=== PATIENT | female | born 1985 | race Caucasian/White ===

== ENCOUNTER 2018-04-24 19:03 | Emergency (ER) | payer MEDICAID, OTHER ==
[2018-04-24 19:17] VITALS: BP 145/94
--- NOTE | 2018-04-24 19:37 | EDM.PDOC ---
ED HPI GENERAL MEDICAL PROBLEM - General Chief Complaint: ENT Problem Stated Complaint: LEFT SIDE TOOTH PULLED SATURDAY EXTREME PAIN TODAY Time Seen by Provider: 04/24/18 19:13 Source of Information: Reports: Patient History Limitations: Reports: No Limitations - History of Present Illness INITIAL COMMENTS - FREE TEXT/NARRATIVE: The patient presents with left upper jaw dental pain. She had a tooth extraction on Saturday. She did great and was taking ibuprofen. The pain started lat night and it has gotten worse. She was not put on antibiotics. The dentist did say it was a difficult extraction. She denies fever or chills. Onset: Gradual Duration: Day(s): (Last night) Location: Reports: Other (Left upper jaw pain) Quality: Reports: Sharp Severity: Severe Improves with: Reports: None Worsens with: Reports: None Associated Symptoms: Reports: No Other Symptoms Left Upper Tooth/Teeth Pain Score (Numeric/FACES): 10 - Related Data Allergies Allergy/AdvReac Type Severity Reaction Status Date / Time codeine Allergy Intermediate Hives Verified 07/23/15 22:14 hydrocodone bitartrate Allergy Intermediate Hives Verified 07/23/15 22:14 [From Vicodin] Home Meds: Home Meds Levonorgestrel [Mirena] 1 each IY ASDIRECTED 07/23/15 [History] Penicillin V Potassium 500 mg PO Q6HR #40 tab 04/24/18 [Rx] oxyCODONE HCl/Acetaminophen [Percocet 5-325 mg Tablet] 1 - 2 each PO Q6HR PRN # 20 tablet 04/24/18 [Rx] Past Medical History - Past Health History Medical/Surgical History: Denies Medical/Surgical History HEENT History: Reports: Other (See Below) Other HEENT History: glasses Cardiovascular History: Reports: Other (See Below) Other Cardiovascular History: hypertension in CORRECTIONS SPECIALIST History: Reports: Neurological History: Reports: Migraines Psychiatric History: Reports: Addiction, Other (See Below) Other Psychiatric History: nicotine is the addiction - Past Surgical History GI Surgical History: Reports: Appendectomy Social & Family History - Tobacco Use Smoking Status *Q: Current Every Day Smoker Years of Tobacco use: 10 Packs/Tins Daily: 0.5 - Caffeine Use Caffeine Use: Reports: Soda - Recreational Drug Use Recreational Drug Use: No ED ROS ENT - Review of Systems Review Of Systems: See Below Constitutional: Reports: No Symptoms HEENT: Reports: Dental Pain Respiratory: Reports: No Symptoms Cardiovascular: Reports: No Symptoms Endocrine: Reports: No Symptoms GI/Abdominal: Reports: No Symptoms : Reports: No Symptoms Musculoskeletal: Reports: No Symptoms Skin: Reports: No Symptoms ED EXAM, ENT - Physical Exam Exam: See Below Exam Limited By: No Limitations General Appearance: Alert, No Apparent Distress Ears: Normal External Exam Nose: Normal Inspection Mouth/Throat: Dental Pain, Other (There appears to be a clot in the socket still. Pain upon palpation and some edema to the left upper jaw.) Course - Vital Signs Last Recorded V/S: Last Vital Signs Temp 98.0 F 04/24/18 19:15 Pulse 71 04/24/18 19:15 Resp 20 04/24/18 19:15 BP 145/94 H 04/24/18 19:15 Pulse Ox 97 04/24/18 19:15 - Re-Assessments/Exams Free Text/Narrative Re-Assessment/Exam: 04/24/18 19:32 I will give her a shot of dilaudid here and I will give her some penicillins and percocet. Departure - Departure Time of Disposition: 19:35 Disposition: Home, Self-Care 01 Condition: Good Clinical Impression: Pain, dental - Discharge Information *PRESCRIPTION DRUG MONITORING PROGRAM REVIEWED*: No *COPY OF PRESCRIPTION DRUG MONITORING REPORT IN PATIENT EFRA: No Prescriptions: oxyCODONE HCl/Acetaminophen [Percocet 5-325 mg Tablet] 1 - 2 each PO Q6HR PRN # 20 tablet PRN Reason: Pain Penicillin V Potassium 500 mg PO Q6HR #40 tab Referrals: PCP,None [Primary Care Provider] - Additional Instructions: Take the medication as prescribed. Try ice or heat to the jaw. Follow up with your dentist. Please return if you are worse.
[2018-04-24] MEDS ORDERED: HYDROmorphone 1 MG/ML Syringe IM ONE (19:38)
== END 2018-04-24 19:48 | disposition home or self-care (01) ==
LOC: JD.ED 19:03
DX: K08.89 Other specified disorders of teeth and supporting structures (principal); F17.210 Nicotine dependence, cigarettes, uncomplicated; Z79.899 Other long term (current) drug therapy; Z88.5 Allergy status to narcotic agent; Z88.6 Allergy status to analgesic agent
CPT/HCPCS: 96372; 99282; J1170; 99283

== ENCOUNTER 2019-01-08 17:07 | Emergency (ER) | payer BC ==
[2019-01-08 17:18] VITALS: BP 172/110; PULSE 87
--- NOTE | 2019-01-08 18:16 | EDM.PDOC ---
<Rowan Og - Last Filed: 01/08/19 18:36> ED HPI GENERAL MEDICAL PROBLEM - General Chief Complaint: General Stated Complaint: SHARP PAIN (L BREAST),LOWER LEFT ABDOMINAL PAIN Time Seen by Provider: 01/08/19 17:20 Source of Information: Reports: Patient History Limitations: Reports: No Limitations - History of Present Illness INITIAL COMMENTS - FREE TEXT/NARRATIVE: 33 year old female who presents to the ED with complaints of nosebleeds, left breast pain, and left lower quadrant pain. She developed a frontal sinus headache three days ago and a history of frequent nosebleeds up to 3-4 times a week. Pt states that she has a history of migraine type headaches and this is not a migraine. Pt has been taking 4 ibuprofen tabs every six hours or so since developing the headache three days ago. Pt then checked her blood pressure at home and it has remained over 100 diastolic. Yesterday she was looking at her phone and she developed sudden severe, sharp burning pain that started in her left axilla and radiated to her left nipple. This pain lasted for about a minute and has been sore to touch since. At 1500 today, the patient developed left lower quadrant pain. She states that this feels similar to the pain that she's had in the past when she's had ovarian cysts. Denies fever, chills, or flulike symptoms. Pt does smoke a half pack of cigarettes per day for the past 15 years and drinks one cup of coffee and 4 pepsi's daily. Left Breast Pain Score (Numeric/FACES): 8 - Related Data Allergies Allergy/AdvReac Type Severity Reaction Status Date / Time codeine Allergy Intermediate Hives Verified 01/08/19 17:18 hydrocodone bitartrate Allergy Intermediate Hives Verified 01/08/19 17:18 [From Vicodin] Home Meds: Home Meds Escitalopram [Lexapro] 20 mg PO DAILY 01/08/19 [History] valACYclovir [Valtrex] 1,000 mg PO Q8H #20 tablet 01/08/19 [Rx] Past Medical History - Past Health History Medical/Surgical History: Denies Medical/Surgical History HEENT History: Reports: Impaired Vision Other HEENT History: glasses Cardiovascular History: Reports: Hypertension, Other (See Below) Other Cardiovascular History: hypertension in Respiratory History: Reports: None 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: Reports: Musculoskeletal History: Reports: None Neurological History: Reports: Migraines Psychiatric History: Reports: Depression Other Psychiatric History: nicotine is the addiction Endocrine/Metabolic History: Reports: Obesity/BMI 30+ Hematologic History: Reports: None Immunologic History: Reports: None Oncologic (Cancer) History: Reports: None Dermatologic History: Reports: None - Infectious Disease History Infectious Disease History: Reports: None - Past Surgical History HEENT Surgical History: Reports: Adenoidectomy, Oral Surgery, Tonsillectomy GI Surgical History: Reports: Appendectomy Female Surgical History: Reports: Tubal Ligation Social & Family History - Tobacco Use Smoking Status *Q: Current Every Day Smoker Years of Tobacco use: 15 Packs/Tins Daily: 0.5 - Caffeine Use Caffeine Use: Reports: Coffee, Soda - Recreational Drug Use Recreational Drug Use: No ED ROS GENERAL - Review of Systems Review Of Systems: See Below Constitutional: Reports: No Symptoms. Denies: Fever, Chills, Malaise, Weakness , Fatigue HEENT: Reports: Nosebleed, Sinus Problem. Denies: Eye Pain, Nose Pain, Vertigo , Vision Change Respiratory: Reports: No Symptoms. Denies: Shortness of Breath, Cough Cardiovascular: Reports: No Symptoms Endocrine: Reports: No Symptoms GI/Abdominal: Reports: Abdominal Pain (left lower quadrant-similar to pain she' s had in the past with ovarian cysts). Denies: Constipation, Diarrhea, Decreased Appetite, Nausea, Vomiting : Reports: No Symptoms Musculoskeletal: Reports: No Symptoms Skin: Reports: No Symptoms Neurological: Reports: Headache. Denies: Dizziness, Numbness, Syncope, Tingling Psychiatric: Reports: No Symptoms Hematologic/Lymphatic: Reports: No Symptoms Immunologic: Reports: Environmental Allergy, Seasonal Allergy ED EXAM, GENERAL - Physical Exam Exam: See Below Exam Limited By: No Limitations General Appearance: Alert, WD/WN, No Apparent Distress Eye Exam: Bilateral Eye: PERRL Ears: Normal External Exam, Hearing Grossly Normal Nose: Normal Inspection, Normal Mucosa, No Blood Throat/Mouth: Normal Inspection, Normal Lips, Normal Voice, No Airway Compromise Head: Atraumatic, Normocephalic, Sinus Tenderness Neck: Normal Inspection, Supple, Non-Tender, Full Range of Motion. No: Lymphadenopathy (L), Lymphadenopathy (R) Respiratory/Chest: No Respiratory Distress, Lungs Clear, Normal Breath Sounds, No Accessory Muscle Use, Chest Non-Tender Cardiovascular: Normal Peripheral Pulses, Regular Rate, Rhythm, No Edema, No Murmur GI/Abdominal: Normal Bowel Sounds, Soft, No Distention, Tender (left lower quadrant) (Female) Exam: Deferred Rectal (Female) Exam: Deferred Back Exam: Normal Inspection, Full Range of Motion Extremities: Normal Inspection, Normal Range of Motion, Non-Tender, No Pedal Edema, Normal Capillary Refill Neurological: Alert, Oriented, Normal Cognition, No Motor/Sensory Deficits Psychiatric: Normal Affect, Normal Mood Skin Exam: Warm, Dry, Intact, Normal Color, Erythema (left anterior axilla area running posteriorly to her back and up around the scapula area. Pt has pain with minimal palpation to this area. No zoster like rash noted at this time. Pt has never had the chicken pox but did have the vaccine for chicken pox.) Lymphatic: No Adenopathy Course - Vital Signs Last Recorded V/S: Last Vital Signs Temp 36.4 C 01/08/19 17:14 Pulse 87 01/08/19 17:14 Resp 16 01/08/19 17:14 BP 172/110 H 01/08/19 17:14 Pulse Ox 98 01/08/19 17:14 - Orders/Labs/Meds Labs: Laboratory Tests 01/08/19 01/08/19 01/08/19 Range/Units 18:22 18:35 18:35 WBC 9.83 (3.98-10.04) K/mm3 RBC 4.54 (3.98-5.22) M/mm3 Hgb 13.9 (11.2-15.7) gm/dl Hct 40.1 (34.1-44.9) % MCV 88.3 (79.4-94.8) fl MCH 30.6 (25.6-32.2) pg MCHC 34.7 (32.2-35.5) g/dl RDW Std Deviation 40.8 (36.4-46.3) fL Plt Count 280 (182-369) K/mm3 MPV 9.5 (9.4-12.3) fl Neutrophils % (Manual) 53 (40-60) % Band Neutrophils % 1 (0-10) % Lymphocytes % (Manual) 41 H (20-40) % Atypical Lymphs % 0 % Monocytes % (Manual) 5 (2-10) % Eosinophils % (Manual) 0 L (0.7-5.8) % Basophils % (Manual) 0 L (0.1-1.2) Platelet Estimate Adequate RBC Morph Comment Normal Sodium 139 (136-145) mEq/L Potassium 3.9 (3.5-5.1) mEq/L Chloride 102 (98-107) mEq/L Carbon Dioxide 28 (21-32) mEq/L Anion Gap 12.9 (5-15) BUN 8 (7-18) mg/dL Creatinine 0.7 (0.55-1.02) mg/dL Est Cr Clr Drug Dosing 109.01 mL/min Estimated GFR (MDRD) > 60 (>60) mL/min BUN/Creatinine Ratio 11.4 L (14-18) Glucose 82 (74-106) mg/dL Calcium 8.9 (8.5-10.1) mg/dL Total Bilirubin 0.3 (0.2-1.0) mg/dL AST 22 (15-37) U/L ALT 31 (14-59) U/L Alkaline Phosphatase 107 (46-116) U/L Total Protein 7.5 (6.4-8.2) g/dl Albumin 3.9 (3.4-5.0) g/dl Globulin 3.6 gm/dL Albumin/Globulin Ratio 1.1 (1-2) Urine Color Yellow (Yellow) Urine Appearance Clear (Clear) Urine pH 7.0 (5.0-8.0) Ur Specific [place] 1.015 (1.005-1.030) Urine Protein Negative (Negative) Urine Glucose (UA) Negative (Negative) Urine Ketones Negative (Negative) Urine Occult Blood Negative (Negative) Urine Nitrite Negative (Negative) Urine Bilirubin Negative (Negative) Urine Urobilinogen 0.2 (0.2-1.0) Ur Leukocyte Esterase Negative (Negative) Urine RBC Not seen (0-5) /hpf Urine WBC Not seen (0-5) /hpf Ur Squamous Epith Cells 0-5 (0-5) /hpf Urine Bacteria Not seen (FEW) /hpf Urine Mucus Not seen (FEW) /hpf Meds: Medications Discontinued Medications Generic Name Dose Route Start Last Admin Trade Name Freq PRN Reason Stop Dose Admin Valacyclovir HCl 1,000 mg 01/08/19 18:32 01/08/19 19:06 Valtrex PO 01/08/19 18:33 1,000 mg ONETIME ONE Administration - Re-Assessments/Exams Free Text/Narrative Re-Assessment/Exam: 01/08/19 18:27 With the patient having complaints of pain to the left breast I completed a bilateral manual breast exam and did not note any masses. However, the patient has erythema noted to left lateral rib area to the left axilla. Pain with minimal is noted from the area of erythema and extending to left scapular area. I ordered a CBC, CMP, and a UA on this patient. I also educated the patient regarding lifestyle changes and the need to stop smoking and decrease caffeine intake. Free Text/Narrative Re-Assessment/Exam: 01/08/19 18:[address] Sierra, we are going to start this patient on valcyclovir due to the dermatome pain. Departure - Departure Disposition: Home, Self-Care 01 Clinical Impression: Shingles rash, Sinus congestion - Discharge Information Prescriptions: valACYclovir [Valtrex] 1,000 mg PO Q8H #20 tablet Referrals: Salome Zhong PA-C [Primary Care Provider] - Forms: ED Department Discharge Additional Instructions: Return to emergency room if any questions problems or worsening symptoms. Take the Valtrex as directed. Use the sinus irrigation as we discussed, use the [employer] med sinus pigment pusher Follow-up in the clinic on Saturday as scheduled. <Fantasma Sierra - Last Filed: 01/08/19 19:28> ED EXAM, GENERAL - Physical Exam Skin Exam: Other (Closer inspection the patient has a dermatomal-like distribution of some erythema started to come out the skin she's got a single lesion that looks like it red area raised just anterior to the axilla she's had a single lesion that could be consistent with early shingles lesion looks like it could be early shingles like lesion this extends into her left breast) Course - Re-Assessments/Exams Free Text/Narrative Re-Assessment/Exam: 01/08/19 19:21 Patient will be started on Valtrex thousand milligrams 3 times a day and she will be started on saline irrigation to help with her sinus congestion and sinus -like headaches.. This will not affect her blood pressure in an adverse way as many of the medications will do. Departure - Departure Time of Disposition: 19:22
[2019-01-08] MEDS ORDERED: valACYclovir 500 MG Tab PO ONE (18:32)
== END 2019-01-08 19:57 | disposition home or self-care (01) ==
LOC: JD.ED 17:07
DX: B02.9 Zoster without complications (principal); R09.81 Nasal congestion; I10 Essential (primary) hypertension; F32.9 Major depressive disorder, single episode, unspecified; E66.9 Obesity, unspecified; Z68.31 Body mass index [BMI] 31.0-31.9, adult; Z88.6 Allergy status to analgesic agent; Z88.8 Allergy status to other drugs, medicaments and biological substances; F17.210 Nicotine dependence, cigarettes, uncomplicated; Z79.899 Other long term (current) drug therapy
CPT/HCPCS: 36415; 80053; 81001; 85007; 85027; 99283; A9270

== ENCOUNTER 2019-05-13 18:35 | Emergency (ER) | payer BC, OTHER ==
[2019-05-13 19:02] VITALS: BP 136/96; PULSE 84
[2019-05-13] MEDS ORDERED: HYDROmorphone 1 MG/ML Syringe IVPUSH ONE (19:10)
[2019-05-13] MEDS ORDERED: Sodium Chloride 0.9% 10 ML Syringe FLUSH PRN (19:10)
[2019-05-13] MEDS ORDERED: Sodium Chloride 0.9% 1,000 ML IV STA (19:10)
--- NOTE | 2019-05-13 19:15 | EDM.PDOC ---
ED HPI GENERAL MEDICAL PROBLEM - General Chief Complaint: Abdominal Pain Stated Complaint: influ b pos back and side pains Time Seen by Provider: 05/13/19 19:01 Source of Information: Reports: Patient History Limitations: Reports: No Limitations - History of Present Illness INITIAL COMMENTS - FREE TEXT/NARRATIVE: The patient presents with abdominal pain. This started today. She was diagnosed with pneumonia and influenza B on Saturday. She was put on an antibiotic. She was doing good and had no fever yesterday. She went to work today and now she is doing worse. She has a fever, cough, and she has upper abdominal pain that radiates to her back. She has no nausea or vomiting. She has no diarrhea or dysuria. She still has her gallbladder but not her appendix. She has generalized weakness and fatigue. Onset: Gradual Duration: Day(s): Location: Reports: Abdomen Quality: Reports: Sharp Severity: Moderate Improves with: Reports: None Worsens with: Reports: None Associated Symptoms: Reports: Cough, Fever/Chills. Denies: Chest Pain, Headaches, Nausea/Vomiting, Shortness of Breath Upper Abdomen Pain Score (Numeric/FACES): 7 - Related Data Allergies Allergy/AdvReac Type Severity Reaction Status Date / Time codeine Allergy Intermediate Hives Verified 05/13/19 18:57 hydrocodone bitartrate Allergy Intermediate Hives Verified 05/13/19 18:57 [From Vicodin] Home Meds: Home Meds Escitalopram [Lexapro] 20 mg PO DAILY 01/08/19 [History] Ondansetron [Zofran ODT] 4 mg PO Q6H PRN #20 tab.dis 05/13/19 [Rx] Past Medical History - Past Health History Medical/Surgical History: Denies Medical/Surgical History HEENT History: Reports: Impaired Vision Other HEENT History: glasses Cardiovascular History: Reports: Hypertension, Other (See Below) Other Cardiovascular History: hypertension in Respiratory History: Reports: None 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 History: Reports: None Neurological History: Reports: Migraines Psychiatric History: Reports: Depression Other Psychiatric History: nicotine is the addiction Endocrine/Metabolic History: Reports: Obesity/BMI 30+ Hematologic History: Reports: None Immunologic History: Reports: None Oncologic (Cancer) History: Reports: None Dermatologic History: Reports: None - Infectious Disease History Infectious Disease History: Reports: Influenza - Past Surgical History HEENT Surgical History: Reports: Adenoidectomy, Oral Surgery, Tonsillectomy GI Surgical History: Reports: Appendectomy Female Surgical History: Reports: Tubal Ligation Social & Family History - Tobacco Use Smoking Status *Q: Current Every Day Smoker Years of Tobacco use: 16 Packs/Tins Daily: 0.5 - Caffeine Use Caffeine Use: Reports: Coffee - Recreational Drug Use Recreational Drug Use: No ED ROS GENERAL - Review of Systems Review Of Systems: See Below Constitutional: Reports: Fever, Chills, Weakness, Fatigue HEENT: Reports: No Symptoms Respiratory: Reports: Cough. Denies: Shortness of Breath Cardiovascular: Reports: No Symptoms Endocrine: Reports: Fatigue GI/Abdominal: Reports: Abdominal Pain. Denies: Diarrhea, Nausea, Vomiting : Reports: No Symptoms Musculoskeletal: Reports: No Symptoms Skin: Reports: No Symptoms ED EXAM, GI/ABD - Physical Exam Exam: See Below Exam Limited By: No Limitations General Appearance: Alert, No Apparent Distress Ears: Normal External Exam Nose: Normal Inspection Head: Atraumatic, Normocephalic Neck: Normal Inspection Respiratory/Chest: No Respiratory Distress, Lungs Clear, Normal Breath Sounds Cardiovascular: Regular Rate, Rhythm, No Edema, No Murmur GI/Abdominal Exam: Soft, No Organomegaly, No Mass, Tender (Mild tenderness to the upper abdomen.) Back Exam: Normal Inspection Extremities: Normal Inspection Course - Vital Signs Last Recorded V/S: Last Vital Signs Temp 97.4 F 05/13/19 18:51 Pulse 84 05/13/19 18:51 Resp 20 05/13/19 18:51 BP 136/96 H 05/13/19 18:51 Pulse Ox 99 05/13/19 18:51 - Orders/Labs/Meds Orders: Active Orders 24 hr Category Date Time Status Peripheral IV Care [RC] . DIRECTED Care 05/13/19 19:10 Active Sodium Chloride 0.9% [Saline Flush] Med 05/13/19 19:10 Active 10 ml FLUSH ASDIRECTED PRN Peripheral IV Insertion Adult [OM.PC] Stat Oth 05/13/19 19:10 Ordered Medication Orders Sodium Chloride (Saline Flush) 10 ml FLUSH ASDIRECTED PRN PRN Reason: Keep Vein Open Last Admin: 05/13/19 19:27 Dose: 10 ml Labs: Laboratory Tests 05/13/19 05/13/19 05/13/19 Range/Units 19:24 19:24 19:24 WBC 5.88 (3.98-10.04) K/mm3 RBC 4.86 (3.98-5.22) M/mm3 Hgb 14.9 (11.2-15.7) gm/dl Hct 43.2 (34.1-44.9) % MCV 88.9 (79.4-94.8) fl MCH 30.7 (25.6-32.2) pg MCHC 34.5 (32.2-35.5) g/dl RDW Std Deviation 42.3 (36.4-46.3) fL Plt Count 208 (182-369) K/mm3 MPV 9.8 (9.4-12.3) fl Neut % (Auto) 30.2 L (34.0-71.1) % Lymph % (Auto) 60.7 H (19.3-51.7) % [place] % (Auto) 7.0 (4.7-12.5) % Eos % (Auto) 1.2 (0.7-5.8) Baso % (Auto) 0.7 (0.1-1.2) % Neut # (Auto) 1.78 (1.56-6.13) K/mm3 Lymph # (Auto) 3.57 (1.18-3.74) K/mm3 [place] # (Auto) 0.41 H (0.24-0.36) K/mm3 Eos # (Auto) 0.07 (0.04-0.36) K/mm3 Baso # (Auto) 0.04 (0.01-0.08) K/mm3 Manual Slide Review Normal smear Sodium 141 (136-145) mEq/L Potassium 2.8 L (3.5-5.1) mEq/L Chloride 102 (98-107) mEq/L Carbon Dioxide 31 (21-32) mEq/L Anion Gap 10.8 (5-15) BUN 9 (7-18) mg/dL Creatinine 0.7 (0.55-1.02) mg/dL Est Cr Clr Drug Dosing 103.82 mL/min Estimated GFR (MDRD) > 60 (>60) mL/min BUN/Creatinine Ratio 12.9 L (14-18) Glucose 90 (74-106) mg/dL Calcium 8.9 (8.5-10.1) mg/dL Total Bilirubin 0.7 (0.2-1.0) mg/dL AST 43 H (15-37) U/L ALT 74 H (14-59) U/L Alkaline Phosphatase 83 (46-116) U/L Total Protein 8.1 (6.4-8.2) g/dl Albumin 3.9 (3.4-5.0) g/dl Globulin 4.2 gm/dL Albumin/Globulin Ratio 0.9 L (1-2) Lipase 91 (73-393) U/L HCG, Qual Negative (NEGATIVE) Urine Color (Yellow) Urine Appearance (Clear) Urine pH (5.0-8.0) Ur Specific [place] (1.005-1.030) Urine Protein (Negative) Urine Glucose (UA) (Negative) Urine Ketones (Negative) Urine Occult Blood (Negative) Urine Nitrite (Negative) Urine Bilirubin (Negative) Urine Urobilinogen (0.2-1.0) Ur Leukocyte Esterase (Negative) Urine RBC (0-5) /hpf Urine WBC (0-5) /hpf Ur Squamous Epith Cells (0-5) /hpf Urine Bacteria (FEW) /hpf Urine Mucus (FEW) /hpf 05/13/19 Range/Units 19:30 WBC (3.98-10.04) K/mm3 RBC (3.98-5.22) M/mm3 Hgb (11.2-15.7) gm/dl Hct (34.1-44.9) % MCV (79.4-94.8) fl MCH (25.6-32.2) pg MCHC (32.2-35.5) g/dl RDW Std Deviation (36.4-46.3) fL Plt Count (182-369) K/mm3 MPV (9.4-12.3) fl Neut % (Auto) (34.0-71.1) % Lymph % (Auto) (19.3-51.7) % [place] % (Auto) (4.7-12.5) % Eos % (Auto) (0.7-5.8) Baso % (Auto) (0.1-1.2) % Neut # (Auto) (1.56-6.13) K/mm3 Lymph # (Auto) (1.18-3.74) K/mm3 [place] # (Auto) (0.24-0.36) K/mm3 Eos # (Auto) (0.04-0.36) K/mm3 Baso # (Auto) (0.01-0.08) K/mm3 Manual Slide Review Sodium (136-145) mEq/L Potassium (3.5-5.1) mEq/L Chloride (98-107) mEq/L Carbon Dioxide (21-32) mEq/L Anion Gap (5-15) BUN (7-18) mg/dL Creatinine (0.55-1.02) mg/dL Est Cr Clr Drug Dosing mL/min Estimated GFR (MDRD) (>60) mL/min BUN/Creatinine Ratio (14-18) Glucose (74-106) mg/dL Calcium (8.5-10.1) mg/dL Total Bilirubin (0.2-1.0) mg/dL AST (15-37) U/L ALT (14-59) U/L Alkaline Phosphatase (46-116) U/L Total Protein (6.4-8.2) g/dl Albumin (3.4-5.0) g/dl Globulin gm/dL Albumin/Globulin Ratio (1-2) Lipase (73-393) U/L HCG, Qual (NEGATIVE) Urine Color Yellow (Yellow) Urine Appearance Slt cloudy H (Clear) Urine pH 6.5 (5.0-8.0) Ur Specific [place] 1.020 (1.005-1.030) Urine Protein 1+ H (Negative) Urine Glucose (UA) Negative (Negative) Urine Ketones Negative (Negative) Urine Occult Blood Trace-lysed H (Negative) Urine Nitrite Negative (Negative) Urine Bilirubin 1+ H (Negative) Urine Urobilinogen 2.0 H (0.2-1.0) Ur Leukocyte Esterase Negative (Negative) Urine RBC 0-5 (0-5) /hpf Urine WBC 0-5 (0-5) /hpf Ur Squamous Epith Cells 5-10 H (0-5) /hpf Urine Bacteria Rare (FEW) /hpf Urine Mucus Not seen (FEW) /hpf Meds: Medications Generic Name Dose Route Start Last Admin Trade Name Freq PRN Reason Stop Dose Admin Sodium Chloride 10 ml 05/13/19 19:10 05/13/19 19:27 Saline Flush FLUSH 10 ml ASDIRECTED PRN Administration Keep Vein Open Discontinued Medications Generic Name Dose Route Start Last Admin Trade Name Debbie PRN Reason Stop Dose Admin Hydromorphone HCl 1 mg 05/13/19 19:10 05/13/19 19:27 Dilaudid IVPUSH 05/13/19 19:11 1 mg ONETIME ONE Administration Sodium Chloride 1,000 mls @ 1,000 mls/hr 05/13/19 19:10 05/13/19 19:27 Normal Saline IV 05/13/19 20:09 1,000 mls/hr .BOLUS STA Administration - Re-Assessments/Exams Free Text/Narrative Re-Assessment/Exam: 05/13/19 19:15 I ordered an IV NS 1L bolus, dilaudid 1mg IV, labs and UA. 05/13/19 20:27 Her CBC looks good. Her K was low at 2.8. She is on potassium for that. Her AST is elevated slightly at 43. Her ALT is elevated slightly at 74. I will discharge her home with some zofran. Departure - Departure Time of Disposition: 20:30 Disposition: Home, Self-Care 01 Condition: Good Clinical Impression: Influenza B, Hypokalemia Abdominal pain Qualifiers: Abdominal location: upper abdomen, unspecified Qualified Code(s): R10.10 - Upper abdominal pain, unspecified - Discharge Information *PRESCRIPTION DRUG MONITORING PROGRAM REVIEWED*: Not Applicable *COPY OF PRESCRIPTION DRUG MONITORING REPORT IN PATIENT EFRA: Not Applicable Prescriptions: Ondansetron [Zofran ODT] 4 mg PO Q6H PRN #20 tab.dis PRN Reason: Nausea\vomiting Referrals: Salome Zhong PA-C [Primary Care Provider] - Forms: ED Department Discharge, ED Return to Work/School Form Additional Instructions: Drink plenty of fluids. Take potassium as directed. Take the zofran every 6 hours as needed for any nausea or vomiting. Take motrin or tylenol for pain or fever. Please return if you are worse. Sepsis Event Note - Evaluation Sepsis Screening Result: No Definite Risk - Focused Exam Vital Signs: Vital Signs Temp Pulse Resp BP Pulse Ox 05/13/19 18:51 97.4 F 84 20 136/96 H 99 Date Exam was Performed: 05/13/19 Time Exam was Performed: 20:27 - My Orders Last 24 Hours: My Active Orders 05/13/19 19:10 Peripheral IV Care [RC] . DIRECTED Sodium Chloride 0.9% [Saline Flush] 10 ml FLUSH ASDIRECTED PRN Peripheral IV Insertion Adult [OM.PC] Stat - Assessment/Plan Last 24 Hours: My Active Orders 05/13/19 19:10 Peripheral IV Care [RC] . DIRECTED Sodium Chloride 0.9% [Saline Flush] 10 ml FLUSH ASDIRECTED PRN Peripheral IV Insertion Adult [OM.PC] Stat
== END 2019-05-13 20:35 | disposition home or self-care (01) ==
LOC: JD.ED 18:35
DX: R10.10 Upper abdominal pain, unspecified (principal); J10.1 Influenza due to other identified influenza virus with other respiratory manifestations; E87.6 Hypokalemia; E66.9 Obesity, unspecified; Z68.33 Body mass index [BMI] 33.0-33.9, adult; F32.9 Major depressive disorder, single episode, unspecified; I10 Essential (primary) hypertension; F17.210 Nicotine dependence, cigarettes, uncomplicated; Z79.899 Other long term (current) drug therapy; Z88.5 Allergy status to narcotic agent
CPT/HCPCS: 36415; 80053; 81001; 83690; 84703; 85025; 96361; 96374; 99284; J1170; J7030

== ENCOUNTER 2019-11-05 19:40 | Emergency (ER) | payer MEDICAID, OTHER ==
--- NOTE | 2019-11-05 20:33 | EDM.PDOC ---
ED HPI GENERAL MEDICAL PROBLEM - General Chief Complaint: Cardiovascular Problem Stated Complaint: HIGH BLOOD PRESSURE Time Seen by Provider: 11/05/19 19:45 Source of Information: Reports: Patient History Limitations: Reports: No Limitations - History of Present Illness INITIAL COMMENTS - FREE TEXT/NARRATIVE: The patient presents with hypertension and chest pain. She said this all started on Saturday. She did not feel well. She did have some pain that went from her left upper back to her chest. She has no fever, chills, cough, congestion, runny nose, shortness of breath, abdominal pain, nausea or vomiting. Her BP was elevated in the 150s and 140s. She called her doctor and she is scheduled to see her on the . She has no history of hypertension but lately she has been running high. She has no headache, vision changes, numbness or weakness. Onset: Gradual Duration: Day(s): Location: Reports: Chest Quality: Reports: Sharp Severity: Moderate Improves with: Reports: None Worsens with: Reports: None Associated Symptoms: Reports: Chest Pain. Denies: Cough, Fever/Chills, Headaches, Nausea/Vomiting, Shortness of Breath Left Chest Pain Score (Numeric/FACES): 4 - Related Data Allergies Allergy/AdvReac Type Severity Reaction Status Date / Time codeine Allergy Severe Hives Verified 11/05/19 19:49 hydrocodone bitartrate Allergy Severe Hives Verified 11/05/19 19:49 [From Vicodin] Home Meds: Home Meds Escitalopram [Lexapro] 20 mg PO DAILY 01/08/19 [History] Metoprolol Succinate 25 mg PO DAILY #30 tab.er.24h 11/05/19 [Rx] hydrOXYzine HCL [Hydroxyzine HCl] 25 mg PO Q6HR PRN 11/05/19 [History] Past Medical History - Past Health History Medical/Surgical History: Denies Medical/Surgical History HEENT History: Reports: Impaired Vision Other HEENT History: glasses Cardiovascular History: Reports: Hypertension, Other (See Below) Other Cardiovascular History: hypertension in Respiratory History: Reports: None 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: Reports: 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 Neurological History: Reports: Migraines Psychiatric History: Reports: Depression Other Psychiatric History: nicotine is the addiction Endocrine/Metabolic History: Reports: Obesity/BMI 30+ Hematologic History: Reports: None Immunologic History: Reports: None Oncologic (Cancer) History: Reports: None Dermatologic History: Reports: None - Infectious Disease History Infectious Disease History: Reports: None - Past Surgical History HEENT Surgical History: Reports: Adenoidectomy, Oral Surgery, Tonsillectomy GI Surgical History: Reports: Appendectomy Female Surgical History: Reports: Tubal Ligation Social & Family History - Tobacco Use Smoking Status *Q: Current Every Day Smoker Years of Tobacco use: 15 Packs/Tins Daily: 0.5 - Caffeine Use Caffeine Use: Reports: Coffee, Soda - Recreational Drug Use Recreational Drug Use: No ED ROS GENERAL - Review of Systems Review Of Systems: See Below Constitutional: Reports: No Symptoms HEENT: Reports: No Symptoms Respiratory: Reports: No Symptoms Cardiovascular: Reports: Chest Pain Endocrine: Reports: No Symptoms GI/Abdominal: Reports: No Symptoms : Reports: No Symptoms Musculoskeletal: Reports: No Symptoms Skin: Reports: No Symptoms ED EXAM, GENERAL - Physical Exam Exam: See Below Exam Limited By: No Limitations General Appearance: Alert, No Apparent Distress Ears: Normal External Exam Nose: Normal Inspection Head: Atraumatic, Normocephalic Neck: Normal Inspection Respiratory/Chest: No Respiratory Distress, Lungs Clear, Normal Breath Sounds Cardiovascular: Regular Rate, Rhythm, No Edema, No Murmur GI/Abdominal: Soft, Non-Tender, No Organomegaly, No Mass Back Exam: Normal Inspection Extremities: Normal Inspection Course - Vital Signs Last Recorded V/S: Last Vital Signs Temp 97.9 F 11/05/19 19:46 Pulse 89 11/05/19 19:46 Resp 16 11/05/19 19:46 BP 149/108 H 11/05/19 19:46 Pulse Ox 98 11/05/19 19:46 - Orders/Labs/Meds Orders: Active Orders 24 hr Category Date Time Status Cardiac Monitoring [RC] . DIRECTED Care 11/05/19 20:03 Active EKG Documentation Completion [RC] STAT Care 11/05/19 20:03 Active Metoprolol Succinate [Toprol XL] Med 11/06/19 09:00 Ordered 25 mg PO DAILY Labs: Laboratory Tests 11/05/19 11/05/19 Range/Units 20:18 20:18 WBC 10.70 H (3.98-10.04) K/mm3 RBC 4.19 (3.98-5.22) M/mm3 Hgb 13.2 D (11.2-15.7) gm/dl Hct 37.6 (34.1-44.9) % MCV 89.7 (79.4-94.8) fl MCH 31.5 (25.6-32.2) pg MCHC 35.1 (32.2-35.5) g/dl RDW Std Deviation 41.9 (36.4-46.3) fL Plt Count 282 (182-369) K/mm3 MPV 10.2 (9.4-12.3) fl Neut % (Auto) 59.5 (34.0-71.1) % Lymph % (Auto) 32.9 (19.3-51.7) % [place] % (Auto) 6.3 (4.7-12.5) % Eos % (Auto) 0.8 (0.7-5.8) Baso % (Auto) 0.4 (0.1-1.2) % Neut # (Auto) 6.37 H (1.56-6.13) K/mm3 Lymph # (Auto) 3.52 (1.18-3.74) K/mm3 [place] # (Auto) 0.67 H (0.24-0.36) K/mm3 Eos # (Auto) 0.09 (0.04-0.36) K/mm3 Baso # (Auto) 0.04 (0.01-0.08) K/mm3 Manual Slide Review Normal smear Sodium 139 (136-145) mEq/L Potassium 3.2 L (3.5-5.1) mEq/L Chloride 102 (98-107) mEq/L Carbon Dioxide 26 (21-32) mEq/L Anion Gap 14.2 (5-15) BUN 11 (7-18) mg/dL Creatinine 1.1 H (0.55-1.02) mg/dL Est Cr Clr Drug Dosing 66.07 mL/min Estimated GFR (MDRD) 58 (>60) mL/min BUN/Creatinine Ratio 10.0 L (14-18) Glucose 115 H (74-106) mg/dL Calcium 8.2 L (8.5-10.1) mg/dL Total Bilirubin 0.3 (0.2-1.0) mg/dL AST 17 (15-37) U/L ALT 29 (14-59) U/L Alkaline Phosphatase 128 H (46-116) U/L Troponin I < 0.017 (0.00-0.056) ng/mL Total Protein 6.8 (6.4-8.2) g/dl Albumin 3.4 (3.4-5.0) g/dl Globulin 3.4 gm/dL Albumin/Globulin Ratio 1.0 (1-2) TSH 3rd Generation 1.936 (0.358-3.74) uIU/mL Meds: Medications Discontinued Medications Generic Name Dose Route Start Last Admin Trade Name Freq PRN Reason Stop Dose Admin Hydrochlorothiazide 12.5 mg 11/05/19 21:41 Hydrochlorothiazide PO 11/05/19 21:42 ONETIME ONE - Re-Assessments/Exams Free Text/Narrative Re-Assessment/Exam: 11/05/19 20:40 I ordered an EKG and labs. 11/05/19 21:44 Her EKG shows a NSR with no acute changes. Her WBC was elevated at 10.7. Her K is low at 3.2. Her creatinine is a little elevated at 1.1. Her alk phos is elevated at 128. Her troponin is negative. Her TSH is normal. She would like to get started on something for her BP. It is not way high but it is running consistently high. I will get her on some metoprolol 25mg. Departure - Departure Time of Disposition: 21:50 Disposition: Home, Self-Care 01 Condition: Good Clinical Impression: Hypertension Qualifiers: Hypertension type: essential hypertension Qualified Code(s): I10 - Essential (primary) hypertension Prescriptions: Metoprolol Succinate 25 mg PO DAILY #30 tab.er.24h Referrals: Salome Zhong PA-C [Primary Care Provider] - 1 Week Forms: ED Department Discharge Additional Instructions: Take metoprolol daily. Follow up with Elena Zhong. Please return if you are worse. You potassium was a little low. I would recommend taking a multivitamin containing potassium. Sepsis Event Note (ED) - Evaluation Sepsis Screening Result: No Definite Risk - Focused Exam Vital Signs: Vital Signs Temp Pulse Resp BP Pulse Ox 11/05/19 19:46 97.9 F 89 16 149/108 H 98 - My Orders Last 24 Hours: My Active Orders 11/05/19 20:03 Cardiac Monitoring [RC] . DIRECTED EKG Documentation Completion [RC] STAT 11/06/19 09:00 Metoprolol Succinate [Toprol XL] 25 mg PO DAILY - Assessment/Plan Last 24 Hours: My Active Orders 11/05/19 20:03 Cardiac Monitoring [RC] . DIRECTED EKG Documentation Completion [RC] STAT 11/06/19 09:00 Metoprolol Succinate [Toprol XL] 25 mg PO DAILY
[2019-11-05] MEDS ORDERED: Hydrochlorothiazide 12.5 MG Cap PO ONE (21:41)
[2019-11-05] MEDS ORDERED: Metoprolol Succinate 25 MG Tab.ER PO SCH (21:53)
[2019-11-05 22:01] VITALS: BP 154/95; PULSE 80
[2019-11-06] MEDS ORDERED: Metoprolol Succinate 25 MG Tab.ER PO SCH (09:00)
== END 2019-11-05 22:08 | disposition home or self-care (01) ==
LOC: JD.ED 19:40
DX: I10 Essential (primary) hypertension (principal); F32.9 Major depressive disorder, single episode, unspecified; E66.9 Obesity, unspecified; F17.210 Nicotine dependence, cigarettes, uncomplicated; Z88.5 Allergy status to narcotic agent; Z68.36 Body mass index [BMI] 36.0-36.9, adult; Z79.899 Other long term (current) drug therapy; Z90.49 Acquired absence of other specified parts of digestive tract; Z90.89 Acquired absence of other organs; Z98.51 Tubal ligation status
CPT/HCPCS: 36415; 80053; 84443; 84484; 85025; 93005; 99285; A9270; 93010; 99283

== ENCOUNTER 2022-04-07 18:24 | Emergency (ER) | payer BC ==
[2022-04-07 18:39] VITALS: BP 154/105; PULSE 86
[2022-04-07] MEDS ORDERED: Ketorolac 30 MG/ML SDV IM ONE (18:56)
[2022-04-07] MEDS ORDERED: diphenhydrAMINE 50 MG/ML SDV IM ONE (18:56)
[2022-04-07] MEDS ORDERED: Metoclopramide 10 MG/2 ML SDV IM ONE (18:56)
== END 2022-04-07 20:16 | disposition home or self-care (01) ==
LOC: JD.ED 18:24
DX: G43.809 Other migraine, not intractable, without status migrainosus (principal); I10 Essential (primary) hypertension; F17.210 Nicotine dependence, cigarettes, uncomplicated; E66.9 Obesity, unspecified; Z68.34 Body mass index [BMI] 34.0-34.9, adult; Z88.5 Allergy status to narcotic agent
CPT/HCPCS: 96372; 99283; J1200; J1885; J2765

== ENCOUNTER 2022-04-13 12:34 | Day surgery (SDC) | payer BC ==
[2022-04-13] MEDS ORDERED: Bupivacaine 0.5%/EPINEPHrine 1:200,000 50 ML MDV ONE (12:45)
[2022-04-13] MEDS ORDERED: Lidocaine 1% 30 ML SDV ONE (12:45)
[2022-04-13] MEDS ORDERED: Rocuronium 50 MG/5 ML Vial ONE (13:02)
[2022-04-13] MEDS ORDERED: Ondansetron 4 MG/2 ML SDV ONE (13:02)
[2022-04-13] MEDS ORDERED: Lidocaine 1% 2 ML ONE (13:02)
[2022-04-13] MEDS ORDERED: fentaNYL 100 MCG/2 ML SDV ONE (13:03)
[2022-04-13] MEDS ORDERED: Propofol 200 MG/20 ML SDV ONE (13:03)
[2022-04-13] MEDS ORDERED: Sodium Chloride 0.9% 10 ML Syringe FLUSH PRN (13:05)
[2022-04-13] MEDS ORDERED: Lidocaine 1%/Sod Bicarbonate in NS 8.4% 1 ML Syringe IDERM PRN (13:05)
[2022-04-13] MEDS ORDERED: ceFAZolin 2 GM Vial ONE (13:06)
[2022-04-13] MEDS ORDERED: Lactated Ringers 1,000 ML IV SCH (13:15)
[2022-04-13] MEDS ORDERED: Midazolam 1 MG/ML 2 ML SDV ONE (13:17)
[2022-04-13] MEDS ORDERED: Ketorolac 30 MG/ML SDV ONE (13:47)
[2022-04-13] MEDS ORDERED: Sugammadex Sodium 200 MG/2 ML VIAL ONE (13:48)
[2022-04-13] MEDS ORDERED: HYDROmorphone 0.5 MG/0.5 ML Syringe IVPUSH PRN (14:25)
[2022-04-13] MEDS ORDERED: fentaNYL 100 MCG/2 ML SDV IVPUSH PRN (14:25)
[2022-04-13] MEDS ORDERED: Ondansetron 4 MG/2 ML SDV IVPUSH PRN (14:25)
[2022-04-13 15:44] VITALS: BP 117/83; PULSE 77
[2022-04-13] MEDS ORDERED: Sodium Chloride 0.9% 10 ML Syringe FLUSH SCH (21:00)
== END 2022-04-13 15:32 | disposition home or self-care (01) ==
LOC: JD.SDS 12:34
PROVIDERS: ATTEND Surgery
DX: K80.10 Calculus of gallbladder with chronic cholecystitis without obstruction (principal); I10 Essential (primary) hypertension; F32.A Depression, unspecified; F41.9 Anxiety disorder, unspecified; G43.909 Migraine, unspecified, not intractable, without status migrainosus; E66.9 Obesity, unspecified; J30.9 Allergic rhinitis, unspecified; F17.210 Nicotine dependence, cigarettes, uncomplicated; Z88.5 Allergy status to narcotic agent; Z79.899 Other long term (current) drug therapy; Z98.890 Other specified postprocedural states; Z68.32 Body mass index [BMI] 32.0-32.9, adult
CPT/HCPCS: 36415; 47562; 80053; 80076; 84703; 85025; J0690; J1885; J2250; J2405; J2704; J3010; J3490; J7120; 00790

== ENCOUNTER 2023-11-19 09:51 | Day surgery (SDC) | payer BC ==
[~2023-11-19 09:51] MED LIST: Sodium Chloride 0.9% 10 ML Syringe FLUSH PRN; Sodium Chloride 0.9% 10 ML Syringe FLUSH SCH
[2023-11-19] MEDS: Lactated Ringers 1,000 ML IV SCH (10:10)
[2023-11-19] MEDS ORDERED: Propofol 200 MG/20 ML SDV ONE ×2 (11:06→12:01)
[2023-11-19] MEDS ORDERED: Midazolam 1 MG/ML 2 ML SDV ONE (11:07)
[2023-11-19] MEDS ORDERED: Metoprolol Tartrate 5 MG/5 ML SDV ONE (12:00)
[2023-11-19 13:36] VITALS: BP 135/95; PULSE 76
== END 2023-11-19 13:30 | disposition home or self-care (01) ==
LOC: JD.SDS 09:51
PROVIDERS: ATTEND Surgery
DX: K20.90 Esophagitis, unspecified without bleeding (principal); K31.89 Other diseases of stomach and duodenum; K21.9 Gastro-esophageal reflux disease without esophagitis; K62.5 Hemorrhage of anus and rectum; K44.9 Diaphragmatic hernia without obstruction or gangrene; I10 Essential (primary) hypertension; E66.9 Obesity, unspecified; F17.210 Nicotine dependence, cigarettes, uncomplicated; Z88.8 Allergy status to other drugs, medicaments and biological substances; Z88.5 Allergy status to narcotic agent; Z79.899 Other long term (current) drug therapy; Z68.36 Body mass index [BMI] 36.0-36.9, adult
CPT/HCPCS: 43239; 45385; J2250; J2704; J3490; J7120; 00813

== ENCOUNTER 2024-09-15 18:02 | Emergency (ER) | payer BC, OTHER ==
[2024-09-15] MEDS ORDERED: Sodium Chloride 0.9% 10 ML Syringe FLUSH PRN (18:45)
[2024-09-15 19:53] LABS: BASOPHILS ABSOLUTE AUTO 0.1 K/mm3 (0.0-0.2); BASOPHILS PERCENT AUTO 0.5 % (0.0-1.0); EOSINOPHILS ABSOLUTE AUTO 0.1 K/mm3 (0.0-0.4); EOSINOPHILS PERCENT AUTO 1.0 % (0.0-6.0); IMMATURE GRAN ABSOLUTE AUTO 0.04 K/mm3 (0.00-0.05); IMMATURE GRAN PERCENT AUTO 0.4 % (0.0-0.4); LYMPHOCYTES ABSOLUTE AUTO 4.3 K/mm3 (1.0-4.8); LYMPHOCYTES PERCENT AUTO 40.1 % (24.0-44.0); MEAN PLATELET VOLUME 9.5 fl (9.4-12.3); MONOCYTES ABSOLUTE AUTO 0.6 K/mm3 (0.0-0.8); MONOCYTES PERCENT AUTO 5.4 % (0.0-8.0); NEUTROPHILS ABSOLUTE AUTO 5.6 K/mm3 (1.8-7.7); NEUTROPHILS PERCENT AUTO 52.6 % (41.0-71.0); NRBC ABSOLUTE 0.00 (0.00-0.02); NRBC PERCENT 0.0 % (0.0-0.2); PLATELET COUNT,PLT 275 K/mm3 (150-400); RED BLOOD CELL COUNT 4.59 M/mm3 (4.10-5.30); WHITE BLOOD CELL COUNT,WBC 10.69 K/mm3 (3.9-11.3)
[2024-09-15 19:54] LABS: APPEARANCE,URINE CLEAR (Clear); GLUCOSE,URINE NEGATIVE (Negative); OCCULT BLOOD,URINE NEGATIVE (Negative)
[2024-09-15] MEDS: Ondansetron 4 MG/2 ML SDV IVPUSH ONE (20:04)
[2024-09-15 20:17] LABS: A/G RATIO 1.1 (1-2); ALANINE AMINOTRANSFERASE,ALT 28.0 U/L (14-59); ASPARTATE AMNIOTRANSFERASE,AST 14.0 U/L (15-37); BILIRUBIN TOTAL 0.2 mg/dL (0.2-1.0); BLOOD UREA NITROGEN,BUN 10.0 mg/dL (7-18); CARBON DIOXIDE,CO2 27.0 mEq/L (21-32); CREATININE 0.6 mg/dL (0.55-1.02); EST CRCL DRUG DOSING (CG) 115.52 mL/min; ESTIMATED GFR 118.0 mL/min (>60); GLUCOSE RANDOM 83.0 mg/dL (70-99); PROTEIN TOTAL,TP 7.4 g/dl (6.4-8.2)
[2024-09-15 20:27] LABS: CHLORIDE,CL 102.0 mEq/L (98-107); POTASSIUM,K 3.2 mEq/L (3.5-5.1); SODIUM,NA 138.0 mEq/L (136-145)
[2024-09-15] MEDS: Iopamidol 612 MG/ML 100 ML Bottle IVPUSH ONE (20:58)
[2024-09-15] MEDS: Sodium Chloride 0.9% 10 ML Syringe FLUSH ONE (20:58)
[2024-09-15] MEDS: Ketorolac 30 MG/ML SDV IVPUSH ONE (22:31)
[2024-09-15 22:34] VITALS: BP 167/111; PULSE 82
== END 2024-09-15 22:00 | disposition home or self-care (01) ==
LOC: JD.ED 18:02
DX: R10.31 Right lower quadrant pain (principal); I10 Essential (primary) hypertension; E66.9 Obesity, unspecified; F17.200 Nicotine dependence, unspecified, uncomplicated; Z88.5 Allergy status to narcotic agent; Z88.8 Allergy status to other drugs, medicaments and biological substances; Z79.899 Other long term (current) drug therapy; Z90.49 Acquired absence of other specified parts of digestive tract
CPT/HCPCS: 36415; 74177; 76830; 80053; 81003; 84703; 85025; 86140; 96361; 96374; 96375; 99284; J1885; J2405; J7030; Q9967; J1171